=== PATIENT | female | born 2000 | race African-American/Black ===

== ENCOUNTER 2025-07-12 08:06 | Emergency (ER) | payer OTHER, SELFPAY ==
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
[2025-07-12 08:12] VITALS: BP 127/82; PULSE 90; RESP 16; TEMP 36.6; O2SAT 97; BMI 34.4
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
--- OUTSIDE RECORDS SUMMARY | 2025-07-12 09:06 | XMS_ITS | Clinical Summary ---
Author Organization [facility] ity Address [id number] [place] [id number] Care Team Providers Care Outpatient Physical Therapist Assistant Name Role Phone Unavailable Primary Care Provider Unavailabl e Social History Tobacco Use Types Packs/Day Years Used Date Smoking Tobacco: Never Assessed Comments Unknown Sex and Gender Information Value Date Recorded Sex Assigned at Not on file Legal Sex Female 8:51 PM EST Gender Identity Not on file Sexual Orientation Not on file Plan of Treatment Health Maintenance Due Date Last Done Comments Gonorrhea/Chlamydia Screening 2002 HPV Vaccines (1 - 3-dose series) 2017 Meningococcal B Vaccine (1 o f 2 - Standard) 2018 DTaP,Tdap,and Td Vaccines (1 - Tdap) 2021 Hepatitis B Vaccines (1 of 3 - 19+ 3-dose series) 2021 HIV Screening 08/14/2023 Hepatitis C Screening 08/14/2023 Social Influencers of Health Screening 08/14/2023 Cervical Cancer Screening: P ap Smear 10/04/2023 Depression Screening 07/20/2024 COVID-19 Vaccine (1 - 2024-2 6 season) 2025 Influenza Vaccine (#1) 2025 RSV Immunization Adult Patie nts (1 - 1-dose 75+ series) 2077 HIB Vaccines Aged Out No longer eligi ble based on patient's age to complete this topic Hepatitis A Vaccines Aged Out No long er eligible based on patient's age to complete this topic IPV Vaccines Aged Out No longer eligi ble based on patient's age to complete this topic MMR Vaccines Aged Out No longer eligi ble based on patient's age to complete this topic Meningococcal ACWY Vaccine Aged Out N o longer eligible based on patient's age to complete this topic Pneumococcal Vaccine: Pediat rics (0 to 5 Years) and At-Risk Patients (6 to 49 Years) Aged Out No longer eligible b ased on patient's age to complete this topic RSV Immunization Patients Un fernando 20 months Aged Out No longer eligible b ased on patient's age to complete this topic Varicella Vaccines Aged Out No longer eligible based on patient's age to complete this topic
[2025-07-12 11:28] VITALS: BP 127/82; PULSE 90; RESP 16; TEMP 36.6; O2SAT 97
== END 2025-07-12 11:28 | disposition home or self-care (01) ==
PROVIDERS: Emergency Provider Emergency Medicine
DX: S40.011A Contusion of right shoulder, initial encounter (principal); V43.52XA Car driver injured in collision with other type car in traffic accident, initial encounter; M25.562 Pain in left knee; M54.2 Cervicalgia; R51.9 Headache, unspecified; Y93.89 Activity, other specified; Y92.414 Local residential or business street as the place of occurrence of the external cause; Y99.9 Unspecified external cause status
CPT/HCPCS: 70450; 72125; 73030; 73564; 99283; 99284

== ENCOUNTER → 2025-07-12 08:23 | Outpatient (BNV) | payer OTHER, SELFPAY | PROVIDERS: Emergency Provider Emergency Medicine; Visit Provider Radiology Diagnostic Ultrasound | DX: M25.511 Pain in right shoulder (principal); M25.562 Pain in left knee; R51.9 Headache, unspecified; Z04.1 Encounter for examination and observation following transport accident | CPT/HCPCS: 70450; 72125; 73030; 73564 ==